=== PATIENT | male | born 1960 | race Caucasian/White ===

== ENCOUNTER 2017-05-01 13:19 | Inpatient (IN) | payer SELFPAY ==
[2017-05-01] MEDS ORDERED: predniSONE 20 MG Tab PO STA (13:33)
[2017-05-01] MEDS ORDERED: Albuterol/Ipratropium 3.0-0.5 MG/3 ML Neb Soln NEB ONE (13:35)
[2017-05-01] MEDS ORDERED: Albuterol 0.083% 2.5 MG/3 ML Neb Soln NEB ONE ×4 (13:56→15:16)
--- NOTE | 2017-05-01 13:56 | EDM.PDOC ---
ED HPI GENERAL MEDICAL PROBLEM - General Chief Complaint: Respiratory Problem Stated Complaint: ASTHMA Time Seen by Provider: 05/01/17 13:23 Source of Information: Reports: Patient, Family (), RN Notes Reviewed History Limitations: Reports: No Limitations - History of Present Illness INITIAL COMMENTS - FREE TEXT/NARRATIVE: The patient states that he has been experiencing dyspnea, wheezing, and a nonproductive cough for the past 3 days. No recent fever. The patient has had similar symptoms in the past, but not nearly as severe. The patient states that he was started on Singulair and albuterol MDI per his PCP, Dr. Michell Heck, about one month ago, for presumed asthma. He has been taking the Singulair once a day, although not today. He used it 4 times 2 days ago, 8 times yesterday, and once today. The patient was then seen by a Ranch Manager in [place] (whose name he cannot recall) about 3 weeks ago. Pulmonary function tests were performed, but the results are still pending. The Ranch Manager did not add or change any of the patient's prescriptions, and did not give the patient a peak flow meter. - Related Data Allergies Allergy/AdvReac Type Severity Reaction Status Date / Time iodine Allergy Rash Verified 05/01/17 13:28 Home Meds: Home Meds ALPRAZolam [Alprazolam] 0.5 - 1 tab PO Q8HR PRN 06/23/16 [History] Atenolol 100 mg PO DAILY 06/23/16 [History] Mirtazapine 45 mg PO DAILY 06/23/16 [History] traZODone 100 mg PO BEDTIME 06/23/16 [History] Albuterol [Ventolin HFA] 2 puff INH Q3HR PRN 05/01/17 [History] Citalopram [Celexa] 40 mg PO DAILY 05/01/17 [History] Montelukast Sodium 10 mg PO BEDTIME 05/01/17 [History] Past Medical History HEENT History: Reports: Impaired Vision Cardiovascular History: Reports: Hypertension Respiratory History: Reports: Asthma (presumed) Gastrointestinal History: Reports: GERD Neurological History: Reports: Seizure Psychiatric History: Reports: Anxiety, Depression Endocrine/Metabolic History: Reports: Obesity/BMI 30+ - Past Surgical History HEENT Surgical History: Reports: Tonsillectomy Musculoskeletal Surgical History: Reports: Arthroscopic Knee (left) Dermatological Surgical History: Reports: Other (See Below) (Cyst from neck) Social & Family History - Family History Family Medical History: Noncontributory - Tobacco Use Smoking Status *Q: Former Smoker Used Tobacco, but Quit: Yes Month Tobacco Last Used: 05/01/1981 - Caffeine Use Caffeine Use: Reports: None - Recreational Drug Use Recreational Drug Use: No - Living Situation & Occupation Living situation: Reports: , with Spouse Occupation: Employed (Starting at [employer] next week) ED ROS GENERAL - Review of Systems Review Of Systems: See Below Constitutional: Reports: No Symptoms HEENT: Reports: No Symptoms Respiratory: Reports: No Symptoms Cardiovascular: Reports: No Symptoms Endocrine: Reports: No Symptoms GI/Abdominal: Reports: No Symptoms : Reports: No Symptoms Musculoskeletal: Reports: No Symptoms Skin: Reports: No Symptoms Neurological: Reports: No Symptoms Psychiatric: Reports: No Symptoms Hematologic/Lymphatic: Reports: No Symptoms Immunologic: Reports: No Symptoms ED EXAM, GENERAL - Physical Exam Exam: See Below Exam Limited By: No Limitations General Appearance: Alert, WD/WN, Moderate Distress Eye Exam: Bilateral Eye: Normal Inspection Ears: Normal External Exam, Hearing Grossly Normal Nose: Normal Inspection, No Blood Throat/Mouth: Normal Inspection, Normal Lips, Normal Voice Head: Atraumatic, Normocephalic Neck: Normal Inspection, Full Range of Motion Respiratory/Chest: No Accessory Muscle Use, Decreased Breath Sounds, Wheezing ( throughout lung arenas), Prolonged Expiration. No: Crackles, Rhonchi, Stridor Cardiovascular: Normal Peripheral Pulses, Regular Rate, Rhythm, No Gallop, No JVD, No Murmur, No Rub Peripheral Pulses: 4+: Radial (L), Radial (R) GI/Abdominal: Normal Bowel Sounds, Soft, Non-Tender, No Organomegaly, No Distention, No Abnormal Bruit, No Mass, Other (Obese) (Male) Exam: Deferred Rectal (Males) Exam: Deferred Back Exam: Normal Inspection, Full Range of Motion, NT Extremities: Normal Inspection, Normal Range of Motion, No Pedal Edema, Normal Capillary Refill Neurological: Alert, Oriented, Normal Cognition, No Motor/Sensory Deficits Psychiatric: Normal Affect Skin Exam: Warm, Dry, Intact, Normal Color, No Rash Lymphatic: No Adenopathy Course - Vital Signs Last Recorded V/S: Last Vital Signs Temp 36.2 C 05/01/17 13:24 Pulse 84 05/01/17 16:30 Resp 20 05/01/17 16:30 BP 182/124 H 05/01/17 13:24 Pulse Ox 93 L 05/01/17 16:30 - Orders/Labs/Meds Orders: Active Orders 24 hr Category Date Time Status Activity as Tolerated [RC] .Routine Care 05/01/17 16:08 Active Overnight Pulse Oximetry [Overnight Pulse Oximetry] [ Care 05/01/17 16:12 Active ] Click To Edit RT PFT Spirometry Screen Pre/P [RC] Click To Edit Care 05/01/17 16:08 Inactive Vital Signs [RC] PER UNIT ROUTINE Care 05/01/17 16:08 Active Consult to Case Management [CONS] Routine Cons 05/01/17 16:16 Active Heart Healthy Diet [DIET] Diet 05/01/17 Dinner Active CXR [Chest 2V] [CR] Routine Exams 05/02/17 09:00 Ordered Chest 2V [CR] Stat Exams 05/01/17 13:40 Taken BMP [BASIC METABOLIC PANEL,BMP] [CHEM] DAILY Lab 05/02/17 05:00 Ordered BMP [BASIC METABOLIC PANEL,BMP] [CHEM] DAILY Lab 05/03/17 05:00 Ordered BMP [BASIC METABOLIC PANEL,BMP] [CHEM] DAILY Lab 05/04/17 05:00 Ordered BMP [BASIC METABOLIC PANEL,BMP] [CHEM] DAILY Lab 05/05/17 05:00 Ordered CBC WITH AUTO DIFF [HEME] DAILY Lab 05/02/17 05:00 Ordered CBC WITH AUTO DIFF [HEME] DAILY Lab 05/03/17 05:00 Ordered CBC WITH AUTO DIFF [HEME] DAILY Lab 05/04/17 05:00 Ordered CBC WITH AUTO DIFF [HEME] DAILY Lab 05/05/17 05:00 Ordered CRP [C-REACTIVE PROTEIN] [CHEM] DAILY Lab 05/02/17 05:00 Ordered CRP [C-REACTIVE PROTEIN] [CHEM] DAILY Lab 05/03/17 05:00 Ordered CRP [C-REACTIVE PROTEIN] [CHEM] DAILY Lab 05/04/17 05:00 Ordered CRP [C-REACTIVE PROTEIN] [CHEM] DAILY Lab 05/05/17 05:00 Ordered MAGNESIUM [CHEM] DAILY Lab 05/02/17 05:00 Ordered MAGNESIUM [CHEM] DAILY Lab 05/03/17 05:00 Ordered MAGNESIUM [CHEM] DAILY Lab 05/04/17 05:00 Ordered MAGNESIUM [CHEM] DAILY Lab 05/05/17 05:00 Ordered ALPRAZolam [Xanax] Med 05/01/17 16:05 Active 0.5 - 1 mg PO Q8HR PRN Albuterol [Proventil Neb Soln] Med 05/01/17 16:09 Ordered 2.5 mg NEB Q4HRRT PRN Albuterol/Ipratropium [DuoNeb 3.0-0.5 MG/3 ML] Med 05/01/17 16:30 Ordered 3 ml NEB QIDRT Atenolol [Atenolol] Med 05/02/17 09:00 Ordered 200 mg PO DAILY Citalopram [Celexa] Med 05/02/17 09:00 Pending 40 mg PO DAILY Doxycycline [Vibramycin] 100 mg Med 05/01/17 21:00 Ordered Sodium Chloride 0.9% [Normal Saline] 100 ml IV Q12HR Loratadine [Claritin] Med 05/01/17 21:00 Ordered 10 mg PO BEDTIME Mirtazapine [Mirtazapine] Med 05/02/17 09:00 Ordered 45 mg PO DAILY Montelukast [Singulair] Med 05/01/17 21:00 Ordered 10 mg PO BEDTIME methylPREDNISolone Sod Succ [Solu-MEDROL] Med 05/01/17 16:15 Ordered 125 mg IVPUSH Q6H traZODone [traZODone] Med 05/01/17 21:00 Ordered 100 mg PO BEDTIME Medication Orders Albuterol (Proventil Neb Soln) 2.5 mg NEB Q4HRRT PRN PRN Reason: Shortness of Breath Albuterol/Ipratropium (Duoneb 3.0-0.5 Mg/3 Ml) 3 ml NEB QIDRT GRACY Alprazolam (Xanax) 0.5 - 1 mg PO Q8HR PRN PRN Reason: Anxiety Citalopram Hydrobromide (Celexa) 40 mg PO DAILY GRACY Doxycycline Hyclate 100 mg/ (Sodium Chloride) 100 mls @ 100 mls/hr IV Q12HR GRACY Loratadine (Claritin) 10 mg PO BEDTIME GRACY Methylprednisolone Sodium Succinate (Solu-Medrol) 125 mg IVPUSH Q6H GRACY Montelukast Sodium (Singulair) 10 mg PO BEDTIME GRACY Non-Formulary Medication (Trazodone [Trazodone]) 100 mg PO BEDTIME GRACY Non-Formulary Medication (Mirtazapine [Mirtazapine]) 45 mg PO DAILY GRACY Non-Formulary Medication (Atenolol [Atenolol]) 200 mg PO DAILY GRACY Labs: Laboratory Tests 05/01/17 05/01/17 05/01/17 Range/Units 13:58 13:58 13:58 WBC 7.13 (4.23-9.07) K/mm3 RBC 5.14 (4.63-6.08) M/mm3 Hgb 15.8 (13.7-17.5) gm/L Hct 47.1 (40.1-51.0) % MCV 91.6 (79.0-92.2) fl MCH 30.7 (25.7-32.2) pg MCHC 33.5 (32.2-35.5) g/dl RDW Std Deviation 43.9 (35.1-43.9) fL Plt Count 179 (163-337) K/mm3 MPV 10.0 (9.4-12.3) fl Neutrophils % (Manual) 64 H (40-60) % Band Neutrophils % 0 (0-10) % Lymphocytes % (Manual) 31 (20-40) % Atypical Lymphs % 0 % Monocytes % (Manual) 3 (2-10) % Eosinophils % (Manual) 2 (0.8-7.0) % Basophils % (Manual) 0 L (0.2-1.2) Platelet Estimate Adequate RBC Morph Comment Not Reportable PT 11.1 (8.0-13.0) SECONDS INR 1.02 APTT 28 (22-36) SECONDS D-Dimer, Quantitative 0.72 H (0.19-0.59) mg/L Sodium 139 (136-145) mEq/L Potassium 4.5 (3.5-5.1) mEq/L Chloride 104 (98-107) mEq/L Carbon Dioxide 27 (21-32) mEq/L Anion Gap 12.5 (5-15) BUN 18 (7-18) mg/dL Creatinine 1.3 (0.7-1.3) mg/dL Est Cr Clr Drug Dosing TNP Estimated GFR (MDRD) 57 (>60) mL/min BUN/Creatinine Ratio 13.8 L (14-18) Glucose 90 (74-106) mg/dL Calcium 9.2 (8.5-10.1) mg/dL Total Bilirubin 0.8 (0.2-1.0) mg/dL AST 46 H (15-37) U/L ALT 82 H (16-63) U/L Alkaline Phosphatase 71 (46-116) U/L Total Protein 8.0 (6.4-8.2) g/dl Albumin 4.0 (3.4-5.0) g/dl Globulin 4.0 gm/dL Albumin/Globulin Ratio 1.0 (1-2) Meds: Medications Generic Name Dose Route Start Last Admin Trade Name Freq PRN Reason Stop Dose Admin Albuterol 2.5 mg 05/01/17 16:09 Proventil Neb Soln NEB Q4HRRT PRN Shortness of Breath Albuterol/Ipratropium 3 ml 05/01/17 16:30 Duoneb 3.0-0.5 Mg/3 Ml NEB QIDRT GRACY Alprazolam 0.5 - 1 mg 05/01/17 16:05 Xanax PO Q8HR PRN Anxiety Citalopram Hydrobromide 40 mg 05/02/17 09:00 Celexa PO DAILY GRACY Doxycycline Hyclate 100 mg/ 100 mls @ 100 mls/hr 05/01/17 21:00 Sodium Chloride IV Q12HR GRACY Loratadine 10 mg 05/01/17 21:00 Claritin PO BEDTIME GRACY Methylprednisolone Sodium Succinate 125 mg 05/01/17 16:15 Solu-Medrol IVPUSH Q6H GRACY Montelukast Sodium 10 mg 05/01/17 21:00 Singulair PO BEDTIME GRACY Non-Formulary Medication 100 mg 05/01/17 21:00 Trazodone [Trazodone] PO BEDTIME GRACY Non-Formulary Medication 45 mg 05/02/17 09:00 Mirtazapine [Mirtazapine] PO DAILY GRACY Non-Formulary Medication 200 mg 05/02/17 09:00 Atenolol [Atenolol] PO DAILY GRACY Discontinued Medications Generic Name Dose Route Start Last Admin Trade Name Freq PRN Reason Stop Dose Admin Albuterol 2.5 mg 05/01/17 13:56 05/01/17 14:05 Proventil Neb Soln NEB 05/01/17 13:57 2.5 mg ONETIME ONE Administration Albuterol 2.5 mg 05/01/17 14:24 05/01/17 14:34 Proventil Neb Soln NEB 05/01/17 14:25 2.5 mg ONETIME ONE Administration Albuterol 2.5 mg 05/01/17 14:50 05/01/17 14:59 Proventil Neb Soln NEB 05/01/17 14:51 2.5 mg ONETIME ONE Administration Albuterol 2.5 mg 05/01/17 15:16 05/01/17 15:24 Proventil Neb Soln NEB 05/01/17 15:17 2.5 mg ONETIME ONE Administration Albuterol/Ipratropium 3 ml 05/01/17 13:35 05/01/17 13:43 Duoneb 3.0-0.5 Mg/3 Ml NEB 05/01/17 13:36 3 ml ONETIME ONE Administration Albuterol/Ipratropium 3 ml 05/01/17 17:00 Duoneb 3.0-0.5 Mg/3 Ml [facility] QID GRACY Prednisone 60 mg 05/01/17 13:33 05/01/17 14:17 Prednisone PO 05/01/17 13:34 60 mg ONETIME STA Administration - Re-Assessments/Exams Free Text/Narrative Re-Assessment/Exam: 05/01/17 14:07 Two-view chest radiograph reviewed. Cardiac silhouette at the upper limits of normal. No pulmonary vascular congestion. No pleural effusions. No focal infiltrate. No pneumothorax. Mild hyperinflation noted. Formal read per the Radiologist pending. 05/01/17 15:17 The patient was initially given a DuoNeb and oral prednisone 60 mg, and is about to receive his 5th albuterol nebulized treatment. He is looking and feeling somewhat better than when he first presented, however, he still has significant expiratory wheezes and prolonged exhalations on auscultation. He will likely require admission. Paging Dr. Gutierrez. 05/01/17 15:[address] Gutierrez at 15:20. She accepts the patient for placement to observation telemetry. Departure - Departure Time of Disposition: 15:24 Disposition: Refer to Observation Condition: Fair Clinical Impression: Status asthmaticus - Discharge Information - My Orders Last 24 Hours: My Active Orders 05/01/17 13:40 Chest 2V [CR] Stat - Assessment/Plan Last 24 Hours: My Active Orders 05/01/17 13:40 Chest 2V [CR] Stat
[2017-05-01] MEDS ORDERED: ALPRAZolam 1 MG Tab PO PRN (16:05)
[2017-05-01] MEDS ORDERED: Albuterol 0.083% 2.5 MG/3 ML Neb Soln NEB PRN (16:09)
--- NOTE | 2017-05-01 16:32 | PCM.HP ---
H&P History of Present Illness - General Date of Service: 05/01/17 Source of Information: Patient, Family, Provider History Limitations: Reports: No Limitations - History of Present Illness Initial Comments - Free Text/Narative: 56 year old male with new diagnosis of asthma, recently seen by a mining analyst. PFTs were performed but not currently available. He has had difficulty breathing for 3-4 days. His home has cats, he states that he is allergic. In the past, their cats were predominately outdoor cats. He has had a nonproductive cough. Denies fever or chills. Has not required intubation. The patient has been started on Singulair/Albuterol recently. Onset of Symptoms: Reports: Gradual Symptom Onset Date: 04/28/17 Duration of Symptoms: Reports: Day(s):, Getting Worse Location: Reports: Chest Quality: Reports: Same as Previous Episode Severity: Severe Improves with: Reports: Medication Worsens with: Reports: Other (allergies) Context: Reports: Other (allergens) Associated Symptoms: Reports: Shortness of Breath, Weakness - Related Data Allergies/Adverse Reactions: Allergies Allergy/AdvReac Type Severity Reaction Status Date / Time iodine Allergy Rash Verified 05/01/17 13:28 Home Medications: Home Meds ALPRAZolam [Alprazolam] 0.5 - 1 tab PO Q8HR PRN 06/23/16 [History] Atenolol 100 mg PO DAILY 06/23/16 [History] Mirtazapine 45 mg PO DAILY 06/23/16 [History] traZODone 100 mg PO BEDTIME 06/23/16 [History] Albuterol [Ventolin HFA] 2 puff INH Q3HR PRN 05/01/17 [History] Citalopram [Celexa] 40 mg PO DAILY 05/01/17 [History] Montelukast Sodium 10 mg PO BEDTIME 05/01/17 [History] Past Medical History HEENT History: Reports: Impaired Vision Cardiovascular History: Reports: Hypertension Respiratory History: Reports: Asthma (presumed) Gastrointestinal History: Reports: GERD Neurological History: Reports: Seizure Psychiatric History: Reports: Anxiety, Depression Endocrine/Metabolic History: Reports: Obesity/BMI 30+ - Past Surgical History HEENT Surgical History: Reports: Tonsillectomy Musculoskeletal Surgical History: Reports: Arthroscopic Knee (left) Dermatological Surgical History: Reports: Other (See Below) (Cyst from neck) Social & Family History - Family History Family Medical History: Noncontributory - Tobacco Use Smoking Status *Q: Former Smoker Used Tobacco, but Quit: Yes Month Tobacco Last Used: 05/01/1981 - Caffeine Use Caffeine Use: Reports: None - Recreational Drug Use Recreational Drug Use: No - Living Situation & Occupation Living situation: Reports: , with Spouse Occupation: Employed (Starting at [employer] next week) H&P Review of Systems - Review of Systems: Review Of Systems: See Below General: Reports: Malaise, Weakness HEENT: Reports: No Symptoms Pulmonary: Reports: Shortness of Breath, Wheezing Cardiovascular: Reports: No Symptoms Gastrointestinal: Reports: No Symptoms Genitourinary: Reports: No Symptoms Musculoskeletal: Reports: No Symptoms Skin: Reports: No Symptoms Psychiatric: Reports: No Symptoms Neurological: Reports: No Symptoms Hematologic/Lymphatic: Reports: No Symptoms Immunologic: Reports: No Symptoms (dander), Other Exam - Exam Exam: See Below - Vital Signs Vital Signs: Last Vital Signs Temp 36.2 C 05/01/17 13:24 Pulse 86 05/01/17 15:02 Resp 20 05/01/17 15:02 BP 182/124 H 05/01/17 13:24 Pulse Ox 97 05/01/17 15:25 Weight: 113.398 kg - Exam Quality Assessment: Supplemental Oxygen, DVT Prophylaxis General: Alert, Oriented, Cooperative HEENT: Nares Patent, Normal Nasal Septum, Posterior Pharynx Clear, Pupils Equal , Pupils Reactive Neck: Supple, Trachea Midline Lungs: Decreased Breath Sounds, Wheezing Cardiovascular: Regular Rate, Regular Rhythm GI/Abdominal Exam: Normal Bowel Sounds, Soft, Non-Tender, No Organomegaly, No Distention (Male) Exam: Deferred Rectal (Males) Exam: Deferred Back Exam: Normal Inspection Extremities: Normal Inspection, Normal Capillary Refill, Pedal Edema Skin: Warm, Dry, Intact Neurological: Cranial Nerves Intact Neuro Extensive - Mental Status: Alert, Oriented x3, Normal Mood/Affect, Normal Cognition, Memory Intact Neuro Extensive - Motor, Sensory, Reflexes: CN II-XII Intact Psychiatric: Alert, Anxious - Patient Data Result Diagrams: 05/01/17 13:58 05/01/17 13:58 *Q Meaningful Use (ADM) - VTE *Q VTE Criteria *Q: - Stroke *Q Stroke Criteria *Q: - AMI *Q AMI Criteria *Q: - Problem List (1) Hypertension SNOMED Code(s): 94044064 ICD Code: I10 - ESSENTIAL (PRIMARY) HYPERTENSION Status: Acute Current Visit: Yes (2) GERD (gastroesophageal reflux disease) SNOMED Code(s): 272826926 ICD Code: K21.9 - GASTRO-ESOPHAGEAL REFLUX DISEASE WITHOUT ESOPHAGITIS Status: Acute Current Visit: Yes (3) Anxiety SNOMED Code(s): 34675163 ICD Code: F41.9 - ANXIETY DISORDER, UNSPECIFIED Status: Acute Current Visit: Yes (4) Depression SNOMED Code(s): 47393799 ICD Code: F32.9 - MAJOR DEPRESSIVE DISORDER, SINGLE EPISODE, UNSPECIFIED Status: Acute Current Visit: Yes (5) Obesity (BMI 30-39.9) SNOMED Code(s): 368217685, 945606639 ICD Code: E66.9 - OBESITY, UNSPECIFIED Status: Acute Current Visit: Yes (6) Status asthmaticus SNOMED Code(s): 908195261 ICD Code: J45.902 - UNSPECIFIED ASTHMA WITH STATUS ASTHMATICUS Status: Acute Current Visit: Yes Problem List Initiated/Reviewed/Updated: Yes Orders Last 24hrs: Active Orders 24 hr Category Date Time Status Activity as Tolerated [RC] .Routine Care 05/01/17 16:08 Ordered Overnight Pulse Oximetry [Overnight Pulse Oximetry] [RC Care 05/01/17 16:12 Ordered ] Click To Edit RT PFT Spirometry Screen Pre/P [RC] Click To Edit Care 05/01/17 16:08 Ordered Vital Signs [RC] PER UNIT ROUTINE Care 05/01/17 16:08 Ordered Consult to Case Management [CONS] Routine Cons 05/01/17 16:16 Ordered Heart Healthy Diet [DIET] Diet 05/01/17 Dinner Ordered CXR [Chest 2V] [CR] Routine Exams 05/02/17 09:00 Ordered BMP [BASIC METABOLIC PANEL,BMP] [CHEM] DAILY Lab 05/02/17 05:00 Ordered BMP [BASIC METABOLIC PANEL,BMP] [CHEM] DAILY Lab 05/03/17 05:00 Ordered BMP [BASIC METABOLIC PANEL,BMP] [CHEM] DAILY Lab 05/04/17 05:00 Ordered BMP [BASIC METABOLIC PANEL,BMP] [CHEM] DAILY Lab 05/05/17 05:00 Ordered CBC WITH AUTO DIFF [HEME] DAILY Lab 05/02/17 05:00 Ordered CBC WITH AUTO DIFF [HEME] DAILY Lab 05/03/17 05:00 Ordered CBC WITH AUTO DIFF [HEME] DAILY Lab 05/04/17 05:00 Ordered CBC WITH AUTO DIFF [HEME] DAILY Lab 05/05/17 05:00 Ordered CRP [C-REACTIVE PROTEIN] [CHEM] DAILY Lab 05/02/17 05:00 Ordered CRP [C-REACTIVE PROTEIN] [CHEM] DAILY Lab 05/03/17 05:00 Ordered CRP [C-REACTIVE PROTEIN] [CHEM] DAILY Lab 05/04/17 05:00 Ordered CRP [C-REACTIVE PROTEIN] [CHEM] DAILY Lab 05/05/17 05:00 Ordered MAGNESIUM [CHEM] DAILY Lab 05/02/17 05:00 Ordered MAGNESIUM [CHEM] DAILY Lab 05/03/17 05:00 Ordered MAGNESIUM [CHEM] DAILY Lab 05/04/17 05:00 Ordered MAGNESIUM [CHEM] DAILY Lab 05/05/17 05:00 Ordered ALPRAZolam [Xanax] Med 05/01/17 16:05 Ordered 1 tab PO Q8HR PRN Albuterol [Proventil Neb Soln] Med 05/01/17 16:09 Ordered 2.5 mg NEB Q4HRRT PRN Albuterol/Ipratropium [DuoNeb 3.0-0.5 MG/3 ML] Med 05/01/17 16:30 Ordered 3 ml NEB QIDRT Atenolol [Atenolol] Med 05/02/17 09:00 Ordered 200 mg PO DAILY Citalopram [Celexa] Med 05/02/17 09:00 Ordered 40 mg PO DAILY Doxycycline [Vibramycin] 100 mg Med 05/01/17 21:00 Ordered Sodium Chloride 0.9% [Normal Saline] 100 ml IV Q12HR Loratadine [Claritin] Med 05/01/17 21:00 Ordered 10 mg PO BEDTIME Mirtazapine [Mirtazapine] Med 05/02/17 09:00 Ordered 45 mg PO DAILY Montelukast [Singulair] Med 05/01/17 21:00 Ordered 10 mg PO BEDTIME methylPREDNISolone Sod Succ [Solu-MEDROL] Med 05/01/17 16:15 Ordered 125 mg IVPUSH Q6H traZODone [traZODone] Med 05/01/17 21:00 Ordered 100 mg PO BEDTIME Medication Orders Albuterol (Proventil Neb Soln) 2.5 mg NEB Q4HRRT PRN PRN Reason: Shortness of Breath Albuterol/Ipratropium (Duoneb 3.0-0.5 Mg/3 Ml) 3 ml NEB QIDRT GRACY Alprazolam (Xanax) 0.5 - 1 mg PO Q8HR PRN PRN Reason: Anxiety Citalopram Hydrobromide (Celexa) 40 mg PO DAILY GRACY Doxycycline Hyclate 100 mg/ (Sodium Chloride) 100 mls @ 100 mls/hr IV Q12HR GRACY Methylprednisolone Sodium Succinate (Solu-Medrol) 125 mg IVPUSH Q6H GRACY Montelukast Sodium (Singulair) 10 mg PO BEDTIME GRACY Non-Formulary Medication (Trazodone [Trazodone]) 100 mg PO BEDTIME GRACY Non-Formulary Medication (Mirtazapine [Mirtazapine]) 45 mg PO DAILY GRACY Non-Formulary Medication (Atenolol [Atenolol]) 200 mg PO DAILY GRACY Assessment/Plan Comment:: Impression: Acute asthma exacerbation Pet allergy Chronic HTN Obesity HTN GERD ? Seizures Anxiety/Depression Plan: Nebs ATB, doxycycline MgSO4 Peak Flow meter IV steroids DVT/GI prophylaxis
[2017-05-01] MEDS ORDERED: Albuterol/Ipratropium 3.0-0.5 MG/3 ML Neb Soln NEB SCH (17:00)
[2017-05-01] MEDS: Albuterol/Ipratropium 3.0-0.5 MG/3 ML Neb Soln NEB SCH ×2 (17:00→20:58)
[2017-05-01] MEDS ORDERED: Magnesium Sulfate/Water 2 GM in Premix Bag 1 BAG IV ONE (17:21)
[2017-05-01] MEDS: methylPREDNISolone Sodium Succinate 125 MG/2 ML SDV IVPUSH SCH ×2 (17:49→21:15)
[2017-05-01] MEDS: TRAZODONE 100 MG PO SCH (21:15)
[2017-05-01] MEDS: Doxycycline 100 MG in Sodium Chloride 0.9% 100 ML IV SCH (21:26)
[2017-05-01] MEDS: Loratadine 10 MG Tab PO SCH (22:20)
[2017-05-02] MEDS: methylPREDNISolone Sodium Succinate 125 MG/2 ML SDV IVPUSH SCH ×4 (06:21→21:27)
[2017-05-02] MEDS: Albuterol/Ipratropium 3.0-0.5 MG/3 ML Neb Soln NEB SCH ×4 (06:21→21:38)
[2017-05-02] MEDS ORDERED: Acetaminophen 325 MG Tab PO PRN (08:03)
[2017-05-02] MEDS: ATENOLOL 100 MG PO SCH (08:21)
[2017-05-02] MEDS: Enoxaparin 40 MG/0.4 ML Syringe SUBCUT SCH (08:22)
[2017-05-02] MEDS: CITALOPRAM 40 MG PO SCH (08:23)
[2017-05-02] MEDS: MIRTAZAPINE 45 MG PO SCH (08:24)
--- NOTE | 2017-05-02 09:44 | PCM.PN ---
- General Info Date of Service: 05/02/17 Functional Status: Reports: Tolerating Diet, Urinating - Review of Systems General: Reports: Weakness HEENT: Reports: No Symptoms Pulmonary: Reports: Shortness of Breath (dereased) Cardiovascular: Reports: No Symptoms Gastrointestinal: Reports: No Symptoms Genitourinary: Reports: No Symptoms Musculoskeletal: Reports: No Symptoms Skin: Reports: No Symptoms Neurological: Reports: No Symptoms Psychiatric: Reports: No Symptoms - Patient Data Vitals - Most Recent: Last Vital Signs Temp 37.0 C 05/02/17 03:00 Pulse 86 05/02/17 03:00 Resp 22 H 05/02/17 03:00 BP 145/74 H 05/02/17 03:00 Pulse Ox 99 05/02/17 06:22 Weight - Most Recent: 129.501 kg I&O - Last 24 Hours: Intake & Output 05/01/17 05/02/17 05/02/17 22:59 06:59 14:59 Intake Total 180 800 Output Total 975 Balance 180 -175 Lab Results Last 24 Hours: Laboratory Results - last 24 hr 05/02/17 05/02/17 Range/Units 05:36 05:36 WBC 9.25 H (4.23-9.07) K/mm3 RBC 4.77 (4.63-6.08) M/mm3 Hgb 15.1 (13.7-17.5) gm/L Hct 43.8 (40.1-51.0) % MCV 91.8 (79.0-92.2) fl MCH 31.7 (25.7-32.2) pg MCHC 34.5 (32.2-35.5) g/dl RDW Std Deviation 44.8 H (35.1-43.9) fL Plt Count 183 (163-337) K/mm3 MPV 10.5 (9.4-12.3) fl Neut % (Auto) 89.5 H (34.0-67.9) % Lymph % (Auto) 9.2 L (21.8-53.1) % [place] % (Auto) 1.1 L (5.3-12.2) % Eos % (Auto) 0.2 L (0.8-7.0) Baso % (Auto) 0.0 L (0.1-1.2) % Neut # (Auto) 8.28 H (1.78-5.38) K/mm3 Lymph # (Auto) 0.85 L (1.32-3.57) K/mm3 [place] # (Auto) 0.10 L (0.30-0.82) K/mm3 Eos # (Auto) 0.02 L (0.04-0.54) K/mm3 Baso # (Auto) 0.00 L (0.01-0.08) K/mm3 Manual Slide Review Normal smear Sodium 138 (136-145) mEq/L Potassium 4.3 (3.5-5.1) mEq/L Chloride 103 (98-107) mEq/L Carbon Dioxide 22 (21-32) mEq/L Anion Gap 17.3 H (5-15) BUN 18 (7-18) mg/dL Creatinine 1.2 (0.7-1.3) mg/dL Est Cr Clr Drug Dosing TNP Estimated GFR (MDRD) > 60 (>60) mL/min BUN/Creatinine Ratio 15.0 (14-18) Glucose 176 H (74-106) mg/dL Calcium 8.6 (8.5-10.1) mg/dL Magnesium 1.8 (1.8-2.4) mg/dl C-Reactive Protein 0.9 (<1.0) mg/dL Med Orders - Current: Current Medications Acetaminophen (Tylenol) 650 mg PO Q4HR PRN PRN Reason: Headache/Pain Last Admin: 05/02/17 08:18 Dose: 650 mg Albuterol (Proventil Neb Soln) 2.5 mg NEB Q4HRRT PRN PRN Reason: Shortness of Breath Albuterol/Ipratropium (Duoneb 3.0-0.5 Mg/3 Ml) 3 ml NEB QIDRT [facility] Last Admin: 05/02/17 06:21 Dose: 3 ml Alprazolam (Xanax) 0.5 - 1 mg PO Q8HR PRN PRN Reason: Anxiety Enoxaparin Sodium (Lovenox) 40 mg SUBCUT DAILY [facility] Last Admin: 05/02/17 08:22 Dose: 40 mg Doxycycline Hyclate 100 mg/ (Sodium Chloride) 100 mls @ 100 mls/hr IV Q12HR [facility] Last Admin: 05/01/17 21:26 Dose: 100 mls/hr Loratadine (Claritin) 10 mg PO BEDTIME [facility] Last Admin: 05/01/17 22:20 Dose: 10 mg Methylprednisolone Sodium Succinate (Solu-Medrol) 125 mg IVPUSH Q6H [facility] Last Admin: 05/02/17 06:21 Dose: 125 mg Montelukast Sodium (Singulair) 10 mg PO BEDTIME [facility] Last Admin: 05/01/17 21:15 Dose: 10 mg Trazodone 100 Mg (Own Med) 100 mg PO BEDTIME [facility] Last Admin: 05/01/17 21:15 Dose: 100 mg Mirtazapine 45 Mg (Own Med) 45 mg PO DAILY [facility] Last Admin: 05/02/17 08:24 Dose: 45 mg Atenolol 100 Mg (Own Med) 200 mg PO DAILY [facility] Last Admin: 05/02/17 08:21 Dose: 200 mg Citalopram 40 Mg (Own Med) 0 each PO DAILY [facility] Last Admin: 05/02/17 08:23 Dose: 1 each Discontinued Medications Albuterol (Proventil Neb Soln) 2.5 mg NEB ONETIME ONE Stop: 05/01/17 13:57 Last Admin: 05/01/17 14:05 Dose: 2.5 mg Albuterol (Proventil Neb Soln) 2.5 mg NEB ONETIME ONE Stop: 05/01/17 14:25 Last Admin: 05/01/17 14:34 Dose: 2.5 mg Albuterol (Proventil Neb Soln) 2.5 mg NEB ONETIME ONE Stop: 05/01/17 14:51 Last Admin: 05/01/17 14:59 Dose: 2.5 mg Albuterol (Proventil Neb Soln) 2.5 mg NEB ONETIME ONE Stop: 05/01/17 15:17 Last Admin: 05/01/17 15:24 Dose: 2.5 mg Albuterol/Ipratropium (Duoneb 3.0-0.5 Mg/3 Ml) 3 ml NEB ONETIME ONE Stop: 05/01/17 13:36 Last Admin: 05/01/17 13:43 Dose: 3 ml Albuterol/Ipratropium (Duoneb 3.0-0.5 Mg/3 Ml) 3 ml NEB QID [facility] Magnesium Sulfate 2 gm/ Premix 50 mls @ 25 mls/hr IV ONETIME ONE Stop: 05/01/17 19:20 Last Admin: 05/01/17 17:49 Dose: 25 mls/hr Prednisone (Prednisone) 60 mg PO ONETIME STA Stop: 05/01/17 13:34 Last Admin: 05/01/17 14:17 Dose: 60 mg - Exam Quality Assessment: DVT Prophylaxis General: Alert, Oriented, Cooperative HEENT: Pupils Equal, Pupils Reactive, EOMI Neck: Supple, Trachea Midline Lungs: Normal Respiratory Effort Cardiovascular: Regular Rate, Regular Rhythm GI/Abdominal Exam: Normal Bowel Sounds, Soft, Non-Tender, No Organomegaly, No Distention (Male) Exam: Deferred Back Exam: Normal Inspection Extremities: Normal Inspection, Non-Tender, No Pedal Edema, Normal Capillary Refill Skin: Warm Neurological: No New Focal Deficit, Normal Gait, Normal Speech Psy/Mental Status: Alert, Normal Affect, Normal Mood - Problem List & Annotations (1) Hypertension SNOMED Code(s): 45823722 Code(s): I10 - ESSENTIAL (PRIMARY) HYPERTENSION Status: Acute Current Visit: Yes (2) GERD (gastroesophageal reflux disease) SNOMED Code(s): 785325394 Code(s): K21.9 - GASTRO-ESOPHAGEAL REFLUX DISEASE WITHOUT ESOPHAGITIS Status: Acute Current Visit: Yes (3) Anxiety SNOMED Code(s): 47353949 Code(s): F41.9 - ANXIETY DISORDER, UNSPECIFIED Status: Acute Current Visit: Yes (4) Depression SNOMED Code(s): 66854612 Code(s): F32.9 - MAJOR DEPRESSIVE DISORDER, SINGLE EPISODE, UNSPECIFIED Status: Acute Current Visit: Yes (5) Obesity (BMI 30-39.9) SNOMED Code(s): 361548532, 348796116 Code(s): E66.9 - OBESITY, UNSPECIFIED Status: Acute Current Visit: Yes (6) Status asthmaticus SNOMED Code(s): 702951068 Code(s): J45.902 - UNSPECIFIED ASTHMA WITH STATUS ASTHMATICUS Status: Acute Current Visit: Yes - Problem List Review Problem List Initiated/Reviewed/Updated: Yes - My Orders Last 24 Hours: My Active Orders 05/01/17 16:44 RT Peak Flow Measurement [RC] ASDIRECTED 05/01/17 19:13 Resuscitation Status Routine 05/02/17 08:03 Acetaminophen [Tylenol] 650 mg PO Q4HR PRN 05/02/17 09:00 Enoxaparin [Lovenox] 40 mg SUBCUT DAILY 05/02/17 11:00 MYCOPLASMA PNEUMONIAE IGM AB [CHEM] Routine RESPIRATORY PANEL BY PCR [MREF] Routine STREP PNEUMONIAE ANTIGEN [MREF] Routine - Plan Plan:: Impression: Acute asthma exacerbation Pet allergy Chronic HTN Obesity HTN GERD ? Seizures Anxiety/Depression Plan: Increase activities Nebs ATB, doxycycline MgSO4 Peak Flow meter IV steroids DVT/GI prophylaxis DC 24 hours, if stable
[2017-05-02] MEDS: Doxycycline 100 MG in Sodium Chloride 0.9% 100 ML IV SCH ×2 (09:45→21:24)
[2017-05-02] MEDS ORDERED: Magnesium Sulfate/Water 2 GM in Premix Bag 1 BAG IV ONE (10:13)
[2017-05-02] MEDS ORDERED: Benzonatate 100 MG Cap PO PRN ×3 (11:52→17:57)
[2017-05-02] MEDS: Codeine/guaiFENesin 100-10 MG/5 ML Syrup 5 ML Cup PO SCH ×2 (12:24→18:21)
[2017-05-02] MEDS: TRAZODONE 100 MG PO SCH (21:25)
[2017-05-02] MEDS: Loratadine 10 MG Tab PO SCH (21:26)
[2017-05-03] MEDS: Codeine/guaiFENesin 100-10 MG/5 ML Syrup 5 ML Cup PO SCH ×5 (03:22→23:31)
[2017-05-03] MEDS: methylPREDNISolone Sodium Succinate 125 MG/2 ML SDV IVPUSH SCH (05:37)
[2017-05-03] MEDS: Albuterol/Ipratropium 3.0-0.5 MG/3 ML Neb Soln NEB SCH ×4 (06:15→21:04)
[2017-05-03] MEDS: ATENOLOL 100 MG PO SCH (08:47)
[2017-05-03] MEDS: Enoxaparin 40 MG/0.4 ML Syringe SUBCUT SCH (08:47)
[2017-05-03] MEDS: MIRTAZAPINE 45 MG PO SCH (08:48)
[2017-05-03] MEDS: CITALOPRAM 40 MG PO SCH (08:49)
[2017-05-03] MEDS ORDERED: Magnesium Hydroxide 400 MG/5 ML Susp 30 ML Cup PO ONE (09:20)
--- NOTE | 2017-05-03 09:43 | PCM.PN ---
- General Info Date of Service: 05/03/17 Admission Dx/Problem (Free Text): Asthma Exacerbation Subjective Update: Follow Up Functional Status: Reports: Pain Controlled, Tolerating Diet, Ambulating, Urinating. Denies: New Symptoms - Review of Systems General: Denies: Fever, Weakness, Fatigue, Malaise, Chills HEENT: Denies: Contact Lenses Pulmonary: Reports: Cough. Denies: Shortness of Breath Cardiovascular: Denies: Chest Pain, PND Gastrointestinal: Denies: Abdominal Pain, Nausea, Vomiting Musculoskeletal: Reports: No Symptoms Skin: Denies: Cyanosis Neurological: Denies: Confusion, Difficulty Walking, Weakness, Gait Disturbance Psychiatric: Denies: Confusion, Anxiety, Agitation, Hallucinations Systems Review Comment:: No significant overnight or acute issues. He feels much better but not ready to go. He has no new complaints. He is now on RA sating in the upper 90s. - Patient Data Vitals - Most Recent: Last Vital Signs Temp 36.7 C 05/03/17 07:15 Pulse 95 05/03/17 07:15 Resp 20 05/03/17 07:15 BP 154/92 H 05/03/17 07:15 Pulse Ox 92 L 05/03/17 07:15 Weight - Most Recent: 130 kg Med Orders - Current: Current Medications Acetaminophen (Tylenol) 650 mg PO Q4HR PRN PRN Reason: Headache/Pain Last Admin: 05/02/17 08:18 Dose: 650 mg Albuterol (Proventil Neb Soln) 2.5 mg NEB Q4HRRT PRN PRN Reason: Shortness of Breath Albuterol/Ipratropium (Duoneb 3.0-0.5 Mg/3 Ml) 3 ml NEB QIDRT [facility] Last Admin: 05/03/17 06:15 Dose: 3 ml Alprazolam (Xanax) 0.5 - 1 mg PO Q8HR PRN PRN Reason: Anxiety Atenolol (Tenormin) 200 mg PO DAILY [facility] Benzonatate (Tessalon Perles) 200 mg PO TID PRN PRN Reason: Cough Last Admin: 05/02/17 18:21 Dose: 200 mg Citalopram Hydrobromide (Celexa) 40 mg PO DAILY [facility] Enoxaparin Sodium (Lovenox) 40 mg SUBCUT DAILY [facility] Last Admin: 05/03/17 08:47 Dose: 40 mg Guaifenesin/Codeine Phosphate (Robitussin Ac) 5 ml PO Q6H [facility] Last Admin: 05/03/17 05:37 Dose: 5 ml Doxycycline Hyclate 100 mg/ (Sodium Chloride) 100 mls @ 100 mls/hr IV Q12HR [facility] Last Admin: 05/02/17 21:24 Dose: 100 mls/hr Loratadine (Claritin) 10 mg PO BEDTIME [facility] Last Admin: 05/02/17 21:26 Dose: 10 mg Methylprednisolone Sodium Succinate (Solu-Medrol) 80 mg IVPUSH Q12H [facility] Mirtazapine (Remeron) 45 mg PO DAILY [facility] Montelukast Sodium (Singulair) 10 mg PO BEDTIME [facility] Trazodone HCl (Trazodone) 100 mg PO BEDTIME [facility] Discontinued Medications Albuterol (Proventil Neb Soln) 2.5 mg NEB ONETIME ONE Stop: 05/01/17 13:57 Last Admin: 05/01/17 14:05 Dose: 2.5 mg Albuterol (Proventil Neb Soln) 2.5 mg NEB ONETIME ONE Stop: 05/01/17 14:25 Last Admin: 05/01/17 14:34 Dose: 2.5 mg Albuterol (Proventil Neb Soln) 2.5 mg NEB ONETIME ONE Stop: 05/01/17 14:51 Last Admin: 05/01/17 14:59 Dose: 2.5 mg Albuterol (Proventil Neb Soln) 2.5 mg NEB ONETIME ONE Stop: 05/01/17 15:17 Last Admin: 05/01/17 15:24 Dose: 2.5 mg Albuterol/Ipratropium (Duoneb 3.0-0.5 Mg/3 Ml) 3 ml NEB ONETIME ONE Stop: 05/01/17 13:36 Last Admin: 05/01/17 13:43 Dose: 3 ml Albuterol/Ipratropium (Duoneb 3.0-0.5 Mg/3 Ml) 3 ml NEB QID [facility] Benzonatate (Tessalon Perles) 200 mg PO BID PRN PRN Reason: Cough Last Admin: 05/02/17 12:24 Dose: 200 mg Benzonatate (Tessalon Perles) 100 mg PO TID PRN PRN Reason: Cough Magnesium Sulfate 2 gm/ Premix 50 mls @ 25 mls/hr IV ONETIME ONE Stop: 05/01/17 19:20 Last Admin: 05/01/17 17:49 Dose: 25 mls/hr Magnesium Sulfate 2 gm/ Premix 50 mls @ 25 mls/hr IV ONETIME ONE Stop: 05/02/17 12:12 Last Admin: 05/02/17 10:48 Dose: 25 mls/hr Magnesium Hydroxide (Milk Of Magnesia) 30 ml PO ONETIME ONE Stop: 05/03/17 09:21 Methylprednisolone Sodium Succinate (Solu-Medrol) 125 mg IVPUSH Q6H [facility] Last Admin: 05/03/17 05:37 Dose: 125 mg Montelukast Sodium (Singulair) 10 mg PO BEDTIME [facility] Last Admin: 05/02/17 21:27 Dose: 10 mg Trazodone 100 Mg (Own Med) 100 mg PO BEDTIME [facility] Last Admin: 05/02/17 21:25 Dose: 100 mg Mirtazapine 45 Mg (Own Med) 45 mg PO DAILY [facility] Last Admin: 05/03/17 08:48 Dose: 45 mg Atenolol 100 Mg (Own Med) 200 mg PO DAILY [facility] Last Admin: 05/03/17 08:47 Dose: 100 mg Citalopram 40 Mg (Own Med) 0 each PO DAILY [facility] Last Admin: 05/03/17 08:49 Dose: 1 each Prednisone (Prednisone) 60 mg PO ONETIME [facility] Stop: 05/01/17 13:34 Last Admin: 05/01/17 14:17 Dose: 60 mg - Exam Quality Assessment: No: Supplemental Oxygen General: Alert, Oriented, Cooperative, No Acute Distress, Other (Morbidly Obese) HEENT: Pupils Equal, Pupils Reactive, EOMI, Mucous Membr. Moist/[place] Neck: Supple, Trachea Midline, No JVD, No Thyromegaly, Other (short and thick) Lungs: Normal Respiratory Effort, Decreased Breath Sounds Cardiovascular: Regular Rate, Regular Rhythm GI/Abdominal Exam: Normal Bowel Sounds, Soft, Non-Tender, No Organomegaly, No Distention, No Abnormal Bruit, No Mass (Male) Exam: Deferred Back Exam: Normal Inspection, Decreased Range of Motion Extremities: Normal Inspection, Normal Range of Motion, Non-Tender, No Pedal Edema, Normal Capillary Refill Peripheral Pulses: 2+: Dorsalis Pedis (L), Dorsalis Pedis (R) Skin: Warm, Dry, Intact Neurological: No New Focal Deficit Psy/Mental Status: Alert, Normal Affect, Normal Mood - Problem List Review Problem List Initiated/Reviewed/Updated: Yes - Plan Plan:: Impression: Acute: Acute Asthma Exacerbation, Improving - Continue IV steroids, singulair, brochodilator and +/- Magnesium - Taper dose steroid on d/c Pet allergy - Has not had RAST testing - Recommend to see an Allergy and Interior Design Assistant Chronic: HTN Obesity with BMI 45 HTN GERD ? Seizures LUIS on CPAP Anxiety/Depression Plan: He is clinically stable Discontinue ATB, no role in acute asthma exacerbation Peak Flow meter DVT/GI prophylaxis SW/CM for d/c planning Ambulate as tolerated Possible d/c in am Patient will be leaving for [place] by . Advised to take 2 albuterol inhalers one is for back up. Also needs to have a face mask or cover to protect himself from exposure to environmental allergens since [place] to him and his .
[2017-05-03] MEDS: Doxycycline 100 MG in Sodium Chloride 0.9% 100 ML IV SCH (10:37)
[2017-05-03] MEDS ORDERED: methylPREDNISolone Sodium Succinate 125 MG/2 ML SDV IVPUSH ONE (12:00)
[2017-05-03] MEDS ORDERED: methylPREDNISolone Sodium Succinate 125 MG/2 ML SDV IVPUSH SCH ×2 (18:00→23:00)
[2017-05-03] MEDS ORDERED: Montelukast 10 MG Tab PO SCH (21:00)
[2017-05-03] MEDS ORDERED: traZODone 50 MG Tab PO SCH (21:00)
[2017-05-03] MEDS: Loratadine 10 MG Tab PO SCH (21:12)
[2017-05-04] MEDS: Albuterol/Ipratropium 3.0-0.5 MG/3 ML Neb Soln NEB SCH ×2 (06:13→09:50)
[2017-05-04] MEDS: Codeine/guaiFENesin 100-10 MG/5 ML Syrup 5 ML Cup PO SCH (06:44)
--- NOTE | 2017-05-04 07:25 | CR ---
Chest: Two views of the chest were obtained. Comparison: Previous chest x-ray of 06/23/16. Heart size and mediastinum are normal. Lungs are clear. Bony structures are within normal limits for the patient's age. Impression: 1. Nothing acute is identified on two-view chest x-ray. Diagnostic code #1
--- NOTE | 2017-05-04 07:25 | CR ---
Chest: Two views of the chest were obtained. Comparison: Previous chest x-ray of 05/01/17. Slight atelectasis within the left lung base is noted. Lungs otherwise are clear. Heart size and mediastinum are normal. Mild degenerative change is noted within the lower thoracic spine. Impression: 1. Incidental findings. Nothing acute is identified on two-view chest x-ray. Diagnostic code #2
[2017-05-04] MEDS: Enoxaparin 40 MG/0.4 ML Syringe SUBCUT SCH (08:40)
[2017-05-04 08:41] VITALS: BP 153/93
[2017-05-04] MEDS ORDERED: Atenolol 50 MG Tab PO SCH ×2 (09:00)
[2017-05-04] MEDS ORDERED: Mirtazapine 15 MG Tab PO SCH (09:00)
[2017-05-04] MEDS ORDERED: Citalopram 20 MG Tab PO SCH (09:00)
--- NOTE | 2017-05-04 09:18 | PCM.DCSUM1 ---
Discharge Summary - Hospital Course Brief History: This is a 56 year old white male with past medical hx/o LUIS on CPAP, Morbid Obesity and new diagnosis of asthma who presents to ED with worsening shortness of breath and was admitted for medical management of asthma exacerbation. - Discharge Data Discharge Date: 05/04/17 Discharge Disposition: Home, Self-Care 01 Condition: Good - Discharge Diagnosis/Problem(s) (1) Pet allergy SNOMED Code(s): 258996922 ICD Code: J30.81 - ALLERGIC RHINITIS DUE TO ANIMAL (CAT) (DOG) HAIR AND DANDER Status: Acute (2) Status asthmaticus SNOMED Code(s): 201630184 ICD Code: J45.902 - UNSPECIFIED ASTHMA WITH STATUS ASTHMATICUS Status: Resolved - Patient Summary/Data Operative Procedure(s) Performed: None Complications: None Recommended Follow-up Testing/Procedures: RAST testing after discharge Hospital Course: Patient was primarily admitted for acute asthma exacerbation. He failed outpatient treatment and therefore he presented to the emergency department for more urgent care. On admission, he was put on intravenous steroids, bronchodilators, magnesium as well as supplemental O2 to improve his symptom; the patient slowly improved and this regimen. His hospital course was uncomplicated. The rest of his chronic medical illness remained stable during this admission. Patient is now ready for discharge. He will resume his asthma regimen to include a two-week taper dose of oral prednisone. He was recommended to see an credit collection specialist for RAST testing. He was advised to have a backup albuterol inhaler and make sure he is up-to-date with his vaccinations prior to traveling to [facility]. He was further advised to use proper protective measures to reduce exposure to new environmental allergens. He is to follow-up with his primary care in 1-2 weeks or after his visit to [facility] as needed. Patient expressed understanding and in agreement with the plans as discussed above all questions were answered. - Patient Instructions Diet: Heart Healthy Diet, Usual Diet as Tolerated, Weight Loss Diet Activity: As Tolerated Driving: Do Not Drive Showering/Bathing: May Shower Notify Provider of: Fever, Nausea and/or Vomiting Other/Special Instructions: - Please take all medications as directed. - Recommend you see an allergy and dry ice maker for RAST testing. - Recommend lifestyle modifications: regular exercise, eat properly and weight loss. - Avoid environmental allergens by protecting yourself with face mask or cover. - Make sure you are uptodate with your immunizations prior to leaving for [facility]. - Follow up with your family doctor in 1-2 weeks if needed - Discharge Plan Prescriptions/Med Rec: predniSONE [Prednisone] 10 mg PO ASDIRECTED #42 tab.ds.pk Home Medications: Home Meds ALPRAZolam [Alprazolam] 0.5 - 1 tab PO Q8HR PRN 06/23/16 [History] Atenolol 100 mg PO DAILY 06/23/16 [History] Mirtazapine 45 mg PO DAILY 06/23/16 [History] traZODone 100 mg PO BEDTIME 06/23/16 [History] Albuterol [Ventolin HFA] 2 puff INH Q3HR PRN 05/01/17 [History] Citalopram [Celexa] 40 mg PO DAILY 05/01/17 [History] Montelukast Sodium 10 mg PO BEDTIME 05/01/17 [History] predniSONE [Prednisone] 10 mg PO ASDIRECTED #42 tab.ds.pk 05/04/17 [Rx] Patient Handouts: Asthma, Adult, [id number], Obesity, [id number] - Discharge Summary/Plan Comment DC Time >30 min.: Yes (45 mins) Discharge Summary/Plan Comment: Discharge To Home - General Info Date of Service: 05/04/17 Admission Dx/Problem (Free Text: Asthma Exacerbation Subjective Update: Follow Up Functional Status: Reports: Pain Controlled, Tolerating Diet, Ambulating, Urinating - Review of Systems General: Denies: Fever, Weakness, Fatigue, Malaise, Chills HEENT: Reports: No Symptoms Pulmonary: Denies: Shortness of Breath, Cough, Wheezing Cardiovascular: Denies: Chest Pain, Dyspnea on Exertion, Edema, Lightheadedness Gastrointestinal: Denies: Abdominal Pain, Nausea, Vomiting Genitourinary: Reports: No Symptoms Musculoskeletal: Reports: No Symptoms Skin: Denies: Cyanosis Neurological: Denies: Confusion, Difficulty Walking, Weakness, Gait Disturbance Psychiatric: Denies: Depression, Mood Lability, Anxiety, Hallucinations - Patient Data Vitals - Most Recent: Last Vital Signs Temp 36.0 C 05/04/17 03:58 Pulse 77 05/04/17 08:35 Resp 20 05/04/17 03:58 BP 153/93 H 05/04/17 08:35 Pulse Ox 94 L 05/04/17 03:58 Weight - Most Recent: 130.317 kg I&O - Last 24 hours: Intake & Output 05/03/17 05/04/17 05/04/17 22:59 06:59 14:59 Intake Total 1100 275 Output Total 1700 500 Balance -600 -225 Lab Results - Last 24 hrs: Laboratory Results - last 24 hr 05/04/17 05/04/17 Range/Units 05:42 05:42 WBC 12.81 H (4.23-9.07) K/mm3 RBC 4.77 (4.63-6.08) M/mm3 Hgb 15.1 (13.7-17.5) gm/L Hct 44.4 (40.1-51.0) % MCV 93.1 H (79.0-92.2) fl MCH 31.7 (25.7-32.2) pg MCHC 34.0 (32.2-35.5) g/dl RDW Std Deviation 46.7 H (35.1-43.9) fL Plt Count 193 (163-337) K/mm3 MPV 10.1 (9.4-12.3) fl Neut % (Auto) 85.7 H (34.0-67.9) % Lymph % (Auto) 9.8 L (21.8-53.1) % [place] % (Auto) 3.6 L (5.3-12.2) % Eos % (Auto) 0 L (0.8-7.0) Baso % (Auto) 0.1 (0.1-1.2) % Neut # (Auto) 10.99 H (1.78-5.38) K/mm3 Lymph # (Auto) 1.25 L (1.32-3.57) K/mm3 [place] # (Auto) 0.46 (0.30-0.82) K/mm3 Eos # (Auto) 0.00 L (0.04-0.54) K/mm3 Baso # (Auto) 0.01 (0.01-0.08) K/mm3 Manual Slide Review Abnormal smear Sodium 137 (136-145) mEq/L Potassium 4.3 (3.5-5.1) mEq/L Chloride 103 (98-107) mEq/L Carbon Dioxide 24 (21-32) mEq/L Anion Gap 14.3 (5-15) BUN 21 H (7-18) mg/dL Creatinine 1.2 (0.7-1.3) mg/dL Est Cr Clr Drug Dosing 65.03 mL/min Estimated GFR (MDRD) > 60 (>60) mL/min BUN/Creatinine Ratio 17.5 (14-18) Glucose 131 H (74-106) mg/dL Calcium 8.2 L (8.5-10.1) mg/dL Magnesium 2.4 (1.8-2.4) mg/dl C-Reactive Protein < 0.2 (<1.0) mg/dL Med Orders - Current: Current Medications Acetaminophen (Tylenol) 650 mg PO Q4HR PRN PRN Reason: Headache/Pain Last Admin: 05/02/17 08:18 Dose: 650 mg Albuterol (Proventil Neb Soln) 2.5 mg NEB Q4HRRT PRN PRN Reason: Shortness of Breath Albuterol/Ipratropium (Duoneb 3.0-0.5 Mg/3 Ml) 3 ml NEB QIDRT [facility] Last Admin: 05/04/17 06:13 Dose: 3 ml Alprazolam (Xanax) 0.5 - 1 mg PO Q8HR PRN PRN Reason: Anxiety Atenolol (Tenormin) 100 mg PO DAILY [facility] Last Admin: 05/04/17 08:35 Dose: 100 mg Benzonatate (Tessalon Perles) 200 mg PO TID PRN PRN Reason: Cough Last Admin: 05/02/17 18:21 Dose: 200 mg Citalopram Hydrobromide (Celexa) 40 mg PO DAILY [facility] Last Admin: 05/04/17 08:35 Dose: 40 mg Enoxaparin Sodium (Lovenox) 40 mg SUBCUT DAILY [facility] Last Admin: 05/04/17 08:40 Dose: 40 mg Guaifenesin/Codeine Phosphate (Robitussin Ac) 5 ml PO Q6H [facility] Last Admin: 05/04/17 06:44 Dose: 5 ml Loratadine (Claritin) 10 mg PO BEDTIME [facility] Last Admin: 05/03/17 21:12 Dose: 10 mg Methylprednisolone Sodium Succinate (Solu-Medrol) 80 mg IVPUSH Q12H [facility] Last Admin: 05/03/17 23:27 Dose: 80 mg Mirtazapine (Remeron) 45 mg PO DAILY [facility] Last Admin: 05/04/17 08:39 Dose: 45 mg Montelukast Sodium (Singulair) 10 mg PO BEDTIME [facility] Last Admin: 05/03/17 21:12 Dose: 10 mg Trazodone HCl (Trazodone) 100 mg PO BEDTIME [facility] Last Admin: 05/03/17 21:12 Dose: 100 mg Discontinued Medications Albuterol (Proventil Neb Soln) 2.5 mg NEB ONETIME ONE Stop: 05/01/17 13:57 Last Admin: 05/01/17 14:05 Dose: 2.5 mg Albuterol (Proventil Neb Soln) 2.5 mg NEB ONETIME ONE Stop: 05/01/17 14:25 Last Admin: 05/01/17 14:34 Dose: 2.5 mg Albuterol (Proventil Neb Soln) 2.5 mg NEB ONETIME ONE Stop: 05/01/17 14:51 Last Admin: 05/01/17 14:59 Dose: 2.5 mg Albuterol (Proventil Neb Soln) 2.5 mg NEB ONETIME ONE Stop: 05/01/17 15:17 Last Admin: 05/01/17 15:24 Dose: 2.5 mg Albuterol/Ipratropium (Duoneb 3.0-0.5 Mg/3 Ml) 3 ml NEB ONETIME ONE Stop: 05/01/17 13:36 Last Admin: 05/01/17 13:43 Dose: 3 ml Albuterol/Ipratropium (Duoneb 3.0-0.5 Mg/3 Ml) 3 ml NEB QID [facility] Atenolol (Tenormin) 200 mg PO DAILY [facility] Benzonatate (Tessalon Perles) 200 mg PO BID PRN PRN Reason: Cough Last Admin: 05/02/17 12:24 Dose: 200 mg Benzonatate (Tessalon Perles) 100 mg PO TID PRN PRN Reason: Cough Doxycycline Hyclate 100 mg/ (Sodium Chloride) 100 mls @ 100 mls/hr IV Q12HR [facility] Last Admin: 05/03/17 10:37 Dose: Not Given Magnesium Sulfate 2 gm/ Premix 50 mls @ 25 mls/hr IV ONETIME ONE Stop: 05/01/17 19:20 Last Admin: 05/01/17 17:49 Dose: 25 mls/hr Magnesium Sulfate 2 gm/ Premix 50 mls @ 25 mls/hr IV ONETIME ONE Stop: 05/02/17 12:12 Last Admin: 05/02/17 10:48 Dose: 25 mls/hr Magnesium Hydroxide (Milk Of Magnesia) 30 ml PO ONETIME ONE Stop: 05/03/17 09:21 Last Admin: 05/03/17 10:34 Dose: 30 ml Methylprednisolone Sodium Succinate (Solu-Medrol) 125 mg IVPUSH Q6H [facility] Last Admin: 05/03/17 05:37 Dose: 125 mg Methylprednisolone Sodium Succinate (Solu-Medrol) 80 mg IVPUSH Q12H [facility] Methylprednisolone Sodium Succinate (Solu-Medrol) 80 mg IVPUSH ONETIME ONE Stop: 05/03/17 12:01 Last Admin: 05/03/17 12:05 Dose: 80 mg Montelukast Sodium (Singulair) 10 mg PO BEDTIME [facility] Last Admin: 05/02/17 21:27 Dose: 10 mg Trazodone 100 Mg (Own Med) 100 mg PO BEDTIME [facility] Last Admin: 05/02/17 21:25 Dose: 100 mg Mirtazapine 45 Mg (Own Med) 45 mg PO DAILY [facility] Last Admin: 05/03/17 08:48 Dose: 45 mg Atenolol 100 Mg (Own Med) 200 mg PO DAILY [facility] Last Admin: 05/03/17 08:47 Dose: 100 mg Citalopram 40 Mg (Own Med) 0 each PO DAILY [facility] Last Admin: 05/03/17 08:49 Dose: 1 each Prednisone (Prednisone) 60 mg PO ONETIME [facility] Stop: 05/01/17 13:34 Last Admin: 05/01/17 14:17 Dose: 60 mg - Exam Quality Assessment: Denies: Supplemental Oxygen General: Reports: Alert, Oriented, Cooperative, No Acute Distress, Other ( Morbidly Obese) HEENT: Reports: Pupils Equal, Pupils Reactive, EOMI, Mucous Membr. Moist/[place] Neck: Reports: Supple, Trachea Midline, No JVD, No Thyromegaly, Other (short and thick) Lungs: Reports: Clear to Auscultation, Normal Respiratory Effort Cardiovascular: Reports: Regular Rate, Regular Rhythm GI/Abdominal Exam: Normal Bowel Sounds, Soft, Non-Tender, No Organomegaly, No Distention, No Abnormal Bruit, No Mass, Other (Obese) (Male) Exam: Deferred Rectal (Males) Exam: Deferred Back Exam: Reports: Normal Inspection, Decreased Range of Motion Extremities: Normal Inspection, Normal Range of Motion, Non-Tender, No Pedal Edema, Normal Capillary Refill Skin: Reports: Warm, Dry, Intact Neurological: Reports: No New Focal Deficit Psy/Mental Status: Reports: Alert, Normal Affect, Normal Mood *Q Meaningful Use (DIS) - VTE *Q VTE Criteria *Q: - Stroke *Q Stroke Criteria *Q: - AMI *Q AMI Criteria *Q:
== END 2017-05-04 10:32 | disposition home or self-care (01) | DRG 202 ==
LOC: JD.ED 13:19 → UNDOADMOB 15:54 → JD.MS 15:54 → OBSVTOIN 05-03 08:38
PROVIDERS: ADMIT Internal Medicine Cardiovascular Disease; ATTEND Internal Medicine Cardiovascular Disease
DX: J45.902 Unspecified asthma with status asthmaticus (principal); Z68.42 Body mass index [BMI] 45.0-49.9, adult; J30.81 Allergic rhinitis due to animal (cat) (dog) hair and dander; I10 Essential (primary) hypertension; K21.9 Gastro-esophageal reflux disease without esophagitis; F32.9 Major depressive disorder, single episode, unspecified; F41.9 Anxiety disorder, unspecified; G47.33 Obstructive sleep apnea (adult) (pediatric); E66.9 Obesity, unspecified; Z87.891 Personal history of nicotine dependence; Z88.8 Allergy status to other drugs, medicaments and biological substances; Z79.899 Other long term (current) drug therapy
CPT/HCPCS: 36415; 71020; 71020-26; 80048; 80053; 83735; 85025; 85379; 85610; 85730; 86140; 86738; 87486; 87581; 87633; 87798; 87899; 94640-76; 94664; 96365; 96366; 96367; 96372; 96375; 96376; 99285; 99285-25; A9270-GY; G0378; J1650; J2930; J3475; J7030

== ENCOUNTER 2019-10-27 19:55 | Emergency (ER) | payer BC, OTHER ==
[2019-10-27 20:10] VITALS: BP 160/88; PULSE 86
[2019-10-27] MEDS ORDERED: Sodium Chloride 0.9% 10 ML Syringe FLUSH PRN (20:27)
[2019-10-27] MEDS ORDERED: Albuterol/Ipratropium 3.0-0.5 MG/3 ML Neb Soln NEB ONE (20:27)
[2019-10-27] MEDS ORDERED: Ondansetron 4 MG/2 ML SDV IVPUSH ONE (20:27)
[2019-10-27] MEDS ORDERED: Ketorolac 30 MG/ML SDV IVPUSH ONE (20:27)
[2019-10-27] MEDS ORDERED: Sodium Chloride 0.9% 1,000 ML IV SCH (20:30)
--- NOTE | 2019-10-27 20:32 | EDM.PDOC ---
ED HPI GENERAL MEDICAL PROBLEM - General Chief Complaint: General Stated Complaint: FLU SYMPTOMS/SOB Time Seen by Provider: 10/27/19 20:05 Source of Information: Reports: Patient History Limitations: Reports: No Limitations - History of Present Illness INITIAL COMMENTS - FREE TEXT/NARRATIVE: Patient is a 58-year-old male who presents to the ER with complaints of fever, body aches, cough, shortness of breath, stomach cramping, nausea, and diarrhea since Thursday. Temperature at home was 102.0. He took TheraFlu this morning at 9 AM, however is not taking anything since that time. Patient has a history of asthma for which he takes Singulair, but does not have any albuterol inhalers or breathing treatments temperature in the ER today is 103.6 temporal. He did have a flu shot this season. He states that a number of his coworkers have been sick with pneumonia and the flu. Denies any dizziness or vomiting. Abdomen Pain Score (Numeric/FACES): 7 - Related Data Allergies Allergy/AdvReac Type Severity Reaction Status Date / Time iodine Allergy Rash Verified 10/27/19 20:05 latex Allergy Rash Verified 10/27/19 20:05 Home Meds: Home Meds ALPRAZolam [Alprazolam] 0.5 - 1 tab PO Q8HR PRN 06/23/16 [History] Mirtazapine 45 mg PO DAILY 06/23/16 [History] atenoloL [Atenolol] 100 mg PO DAILY 06/23/16 [History] traZODone 100 mg PO BEDTIME 06/23/16 [History] Albuterol [Ventolin HFA] 2 puff INH Q3HR PRN 05/01/17 [History] Citalopram [Celexa] 40 mg PO DAILY 05/01/17 [History] Montelukast Sodium 10 mg PO BEDTIME 05/01/17 [History] predniSONE [Prednisone] 10 mg PO ASDIRECTED #42 tab.ds.pk 05/04/17 [Rx] Albuterol/Ipratropium [DuoNeb 3.0-0.5 MG/3 ML] 3 ml .XX Q4H PRN #15 neb [Rx] Doxycycline [Vibramycin] 100 mg PO BID #20 tab 10/27/19 [Rx] Past Medical History HEENT History: Reports: Impaired Vision Cardiovascular History: Reports: Hypertension Respiratory History: Reports: Asthma Other Respiratory History: on BIPAP will bring Gastrointestinal History: Reports: GERD Neurological History: Reports: Seizure Other Neuro History: epilepsy-20yrs Psychiatric History: Reports: Anxiety, Depression Endocrine/Metabolic History: Reports: Obesity/BMI 30+ - Infectious Disease History Infectious Disease History: Reports: Chicken Pox, Measles - Past Surgical History HEENT Surgical History: Reports: Tonsillectomy Musculoskeletal Surgical History: Reports: Arthroscopic Knee Dermatological Surgical History: Reports: Other (See Below) Social & Family History - Family History Family Medical History: Noncontributory - Tobacco Use Smoking Status *Q: Never Smoker - Caffeine Use Caffeine Use: Reports: None Other Caffeine Use: 1 cup a day - Recreational Drug Use Recreational Drug Use: No - Living Situation & Occupation Living situation: Reports: , with Spouse Occupation: Employed (Starting at [employer] next week) ED ROS GENERAL - Review of Systems Review Of Systems: Comprehensive ROS is negative, except as noted in HPI. ED EXAM, GENERAL - Physical Exam Exam: See Below Exam Limited By: No Limitations General Appearance: Alert, WD/WN, No Apparent Distress Respiratory/Chest: No Respiratory Distress, No Accessory Muscle Use, Chest Non- Tender, Wheezing (Expiratory throughout) Cardiovascular: Normal Peripheral Pulses, Regular Rate, Rhythm, No Edema, No Gallop, No JVD, No Murmur, No Rub GI/Abdominal: Normal Bowel Sounds, Soft, No Organomegaly, No Distention, No Abnormal Bruit, No Mass, Tender (Generalized ) Neurological: Alert, Oriented, CN II-XII Intact, Normal Cognition, Normal Gait, Normal Reflexes, No Motor/Sensory Deficits Psychiatric: Normal Affect, Normal Mood Skin Exam: Warm, Dry, Intact, No Rash, Other (Flushed) Course - Vital Signs Last Recorded V/S: Last Vital Signs Temp 103.6 F H 10/27/19 20:05 Pulse 86 10/27/19 20:05 Resp 16 10/27/19 20:05 BP 160/88 H 10/27/19 20:05 Pulse Ox 96 10/27/19 20:27 - Orders/Labs/Meds Orders: Active Orders 24 hr Category Date Time Status Peripheral IV Care [RC] . DIRECTED Care 10/27/19 20:27 Active RT Aerosol Therapy [RC] ASDIRECTED Care 10/27/19 20:27 Active Chest 2V [CR] Stat Exams 10/27/19 20:27 Taken Peripheral IV Insertion Adult [OM.PC] Stat Oth 10/27/19 20:27 Ordered Labs: Laboratory Tests 10/27/19 10/27/19 Range/Units 20:34 20:34 WBC 3.66 L (4.23-9.07) K/mm3 RBC 4.96 (4.63-6.08) M/mm3 Hgb 14.7 (13.7-17.5) gm/dl Hct 43.9 (40.1-51.0) % MCV 88.5 D (79.0-92.2) fl MCH 29.6 (25.7-32.2) pg MCHC 33.5 (32.2-35.5) g/dl RDW Std Deviation 43.6 (35.1-43.9) fL Plt Count 162 L (163-337) K/mm3 MPV 10.7 (9.4-12.3) fl Neut % (Auto) 72.4 H (34.0-67.9) % Lymph % (Auto) 14.8 L (21.8-53.1) % [place] % (Auto) 8.7 (5.3-12.2) % Eos % (Auto) 3.8 (0.8-7.0) Baso % (Auto) 0.3 (0.1-1.2) % Neut # (Auto) 2.65 (1.78-5.38) K/mm3 Lymph # (Auto) 0.54 L (1.32-3.57) K/mm3 [place] # (Auto) 0.32 (0.30-0.82) K/mm3 Eos # (Auto) 0.14 (0.04-0.54) K/mm3 Baso # (Auto) 0.01 (0.01-0.08) K/mm3 Sodium 137 (136-145) mEq/L Potassium 4.0 (3.5-5.1) mEq/L Chloride 101 (98-107) mEq/L Carbon Dioxide 26 (21-32) mEq/L Anion Gap 14.0 (5-15) BUN 9 (7-18) mg/dL Creatinine 1.2 (0.7-1.3) mg/dL Est Cr Clr Drug Dosing 63.50 mL/min Estimated GFR (MDRD) > 60 (>60) mL/min BUN/Creatinine Ratio 7.5 L (14-18) Glucose 98 (74-106) mg/dL Calcium 9.0 (8.5-10.1) mg/dL Total Bilirubin 1.0 (0.2-1.0) mg/dL AST 33 (15-37) U/L ALT 56 (16-63) U/L Alkaline Phosphatase 71 (46-116) U/L Total Protein 7.6 (6.4-8.2) g/dl Albumin 3.7 (3.4-5.0) g/dl Globulin 3.9 gm/dL Albumin/Globulin Ratio 1.0 (1-2) Meds: Medications Discontinued Medications Generic Name Dose Route Start Last Admin Trade Name Freq PRN Reason Stop Dose Admin Albuterol/Ipratropium 3 ml 10/27/19 20:27 10/27/19 21:06 Duoneb 3.0-0.5 Mg/3 Ml NEB 10/27/19 20:28 3 ml ONETIME ONE Administration Sodium Chloride 1,000 mls @ 999 mls/hr 10/27/19 20:30 10/27/19 20:39 Normal Saline IV 999 mls/hr ASDIRECTED GRACY Administration Ketorolac Tromethamine 30 mg 10/27/19 20:27 10/27/19 20:40 Toradol IVPUSH 10/27/19 20:28 30 mg ONETIME ONE Administration Ondansetron HCl 4 mg 10/27/19 20:27 10/27/19 20:39 Zofran IVPUSH 10/27/19 20:28 4 mg ONETIME ONE Administration Sodium Chloride 10 ml 10/27/19 20:27 10/27/19 20:39 Saline Flush FLUSH 10 ml ASDIRECTED PRN Administration Keep Vein Open - Re-Assessments/Exams Free Text/Narrative Re-Assessment/Exam: Influenza screen was negative. CXR was concerning for a right sided bronchial pneumonia. SpO2 has been stable at 94-96% on RA. We will start tx with doxycycline. Pt has a neb machine at home. I will also order DuoNebs for home. Discharge instructions as documented. Departure - Departure Time of Disposition: 21:36 Disposition: DC/Tfer to Hospice-Med Fac 51 Condition: Fair Clinical Impression: Pneumonia Qualifiers: Pneumonia type: due to unspecified organism Laterality: right Lung location: unspecified part of lung Qualified Code(s): J18.9 - Pneumonia, unspecified organism - Discharge Information *PRESCRIPTION DRUG MONITORING PROGRAM REVIEWED*: No *COPY OF PRESCRIPTION DRUG MONITORING REPORT IN PATIENT BAYLEE: No Prescriptions: Albuterol/Ipratropium [DuoNeb 3.0-0.5 MG/3 ML] 3 ml .XX Q4H PRN #15 neb PRN Reason: Shortness Of Breath Doxycycline [Vibramycin] 100 mg PO BID #20 tab Instructions: Sepsis, Adult, Community-Acquired Pneumonia, Adult, [id number] Referrals: Lisa Heck MD [Primary Care Provider] - Forms: ED Department Discharge Additional Instructions: You were seen in the emergency department for flulike symptoms and shortness of breath since Thursday. Your influenza screen did come back negative, however, as we discussed, I do feel that you likely do have influenza based on your symptoms. Your chest x-ray is also suggestive of an early onset right-sided pneumonia. A prescription for DuoNeb treatments as well as doxycycline, and antibiotic, has been sent to [facility]. Take these medications as prescribed. I do also recommend that you take Tylenol or ibuprofen routinely over the next couple days to keep your fever managed as this will make your body aches worse. Ensure that you are taking an adequate amount of fluid. Gatorade or Powerade is good for oral rehydration. Symptoms should begin to improve over the next couple days. If you experience any worsening symptoms or fail to improve as expected, please return to the emergency department. Sepsis Event Note - Evaluation Sepsis Screening Result: No Definite Risk - Focused Exam Vital Signs: Vital Signs Temp Pulse Resp BP Pulse Ox Pulse Ox 10/27/19 20:27 96 10/27/19 20:05 103.6 F H 86 16 160/88 H 94 L Date Exam was Performed: 10/27/19 Time Exam was Performed: 22:53 - My Orders Last 24 Hours: My Active Orders 10/27/19 20:27 Peripheral IV Care [RC] . DIRECTED RT Aerosol Therapy [RC] ASDIRECTED Chest 2V [CR] Stat Peripheral IV Insertion Adult [OM.PC] Stat - Assessment/Plan Last 24 Hours: My Active Orders 10/27/19 20:27 Peripheral IV Care [RC] . DIRECTED RT Aerosol Therapy [RC] ASDIRECTED Chest 2V [CR] Stat Peripheral IV Insertion Adult [OM.PC] Stat
--- NOTE | 2019-10-28 07:52 | CR ---
Chest: Two views of the chest were obtained. Comparison: Prior chest x-ray of 05/02/17. Diffuse increased right-sided lung markings are seen. Left lung is clear. Heart size and mediastinum are normal. Bony structures show scattered disc space narrowing within the spine with endplate spurring. Impression: 1. Diffuse right-sided increased lung markings most likely representing fairly severe bronchitis. 2. Degenerative change is noted within the spine. Diagnostic code #3 This report was dictated in [place] Standard Time
== END 2019-10-27 21:53 | disposition hospice, inpatient (51) ==
LOC: JD.ED 19:55
DX: J18.9 Pneumonia, unspecified organism (principal); I10 Essential (primary) hypertension; J45.909 Unspecified asthma, uncomplicated; G40.909 Epilepsy, unspecified, not intractable, without status epilepticus; F41.9 Anxiety disorder, unspecified; F32.9 Major depressive disorder, single episode, unspecified; E66.9 Obesity, unspecified; Z68.33 Body mass index [BMI] 33.0-33.9, adult; Z91.040 Latex allergy status; Z91.09 Other allergy status, other than to drugs and biological substances; Z79.899 Other long term (current) drug therapy
CPT/HCPCS: 36415; 71046; 80053; 85025; 87804; 94640; 96361; 96374; 96375; 99285; J1885; J2405; J7030; J7620-GY